=== PATIENT | male | born 1955 | race African-American/Black ===

== ENCOUNTER 2020-12-05 15:37 | Emergency (ER) | payer MEDICAID ==
[~2020-12-05] VITALS: Ht 177.8 cm; Wt 129.6 kg
[2020-12-05] MEDS ORDERED: UNK HTN MED PO (15:49)
[2020-12-05] MEDS ORDERED: ALBU8HFA IH (15:49)
[2020-12-05 16:28] LABS: EOSINOPHILS % (AUTO) 2.2 % (1.0-6.0); HEMATOCRIT 45.2 % (41-53); HEMOGLOBIN 14.2 g/dL (13.5-17.5); LYMPHOCYTES % (AUTO) 24.8 % (22.0-44.0); MEAN CORPUSCULAR HEMOGLOBIN 27.4 pg (26.0-34.0); MEAN CORPUSCULAR HGB CONC 31.4 G/dL (31.0-37.0); MEAN CORPUSCULAR VOLUME 87 fL (80-100); MONOCYTES % (AUTO) 8.8 % (2.0-9.0); NEUTROPHILS % (AUTO) 63.1 % (40.0-70.0); PLATELET COUNT (AUTO) 262 K/uL (150-450); RED BLOOD CELL COUNT(AUTO) 5.19 MIL/uL (4.50-5.90); RED CELL DISTRIBUTION WIDTH 19.5 % (11.5-14.5)
[2020-12-05 16:29] LABS: BASOPHILS % (AUTO) 1.1 % (0.0-2.0); LYMPHOCYTES # (AUTO) 1.8 K/uL (1.0-4.8); MONOCYTES # (AUTO) 0.6 K/uL (0.1-1.0); NEUTROPHILS # (AUTO) 4.6 K/uL (1.8-7.7)
[2020-12-05 16:41] LABS: ANION GAP 6 mmol/L (8-16); CALCIUM, TOTAL 9.1 mg/dL (8.8-10.5); CARBON DIOXIDE 33 mmol/L (22-29); CHLORIDE 107 mmol/L (98-107); CREATININE 1.17 mg/dL (0.60-1.30); GLOMERULAR FILTR. RATE CALC > 60 mL/min (>60); GLUCOSE,RANDOM 231 mg/dL (70-110); POTASSIUM 4.2 mmol/L (3.5-5.1); SODIUM SERUM 146 mmol/L (136-145); UREA NITROGEN, BLOOD 15 mg/dL (7-18)
[2020-12-05] MEDS ORDERED: MethylPREDNISolone SOD SUCC 125 MG/2 ML VIAL IVP ONE (16:45)
[2020-12-05 16:50] LABS: COVID AG,FIA SOURCE NASOPHARYNGEAL
[2020-12-05 16:59] LABS: B-TYPE NATRIURETIC PEPTIDE 346 pg/mL (0-100)
[2020-12-05 17:05] VITALS: BP 155/78
[2020-12-05 17:06] LABS: ALANINE AMINOTRANSFERASE 24 U/L (12-78); ALBUMIN 3.6 g/dL (3.4-5.0); ALKALINE PHOSPHATASE 68 U/L (46-116); ASPARTATE AMINOTRANSFERASE 9 U/L (15-37); BILIRUBIN,TOTAL 0.3 mg/dL (0.1-1.0); CREATINE KINASE, TOTAL ONLY 108 U/L (39-308); TOTAL PROTEIN, SERUM 7.1 g/dL (6.4-8.2)
[2020-12-05 17:16] LABS: ABG A-A DIFF O2 59.7 mmHg (10-20.0); ABG BASE EXCESS 6.4 mmol/L (-2.0-3.0); ABG CARBOXYHEMOGLOBIN 4.7 % (0.0-1.5); ABG HCO3 27.9 mmol/L (22.0-26.0); ABG METHEMOGLOBIN 0.2 % (0.0-1.5); ABG OXYGEN CONTENT 18.5 mL/dL (15.0-23.0); ABG OXYGEN SATURATION 91.3 % (95.0-98.0); ABG OXYHEMOGLOBIN 86.8 % (94.0-100.0); ABG PH 7.303 (7.35-7.450); ABG TOTAL HEMOGLOBIN 15.2 G/dL (12.0-18.0); PO2, ARTERIAL BG 60.3 mmHg (79.0-87.0); SOURCE, BLOOD GAS ARTERIAL; TEMPERATURE, FAHRENHEIT, BG 98.1 FAHREN (96.0-98.6)
[2020-12-05 17:17] LABS: ABG PCO2 68 mmHg (35-45); SITE, BLOOD GAS RT BRACHIAL
[2020-12-05 17:18] LABS: O2 DEVICE,BLOOD GAS CANNULA (ROOM AIR)
[2020-12-05] MEDS ORDERED: ALBUTEROL SULFATE HFA 90 MCG/PUFF 8 GM INHALER IH ONE (17:45)
== END 2020-12-05 18:05 | disposition left against medical advice (07) ==
LOC: EMS 15:37
DX: J44.9 Chronic obstructive pulmonary disease, unspecified (principal); I11.0 Hypertensive heart disease with heart failure; I50.9 Heart failure, unspecified; F17.210 Nicotine dependence, cigarettes, uncomplicated; Z20.822 Contact with and (suspected) exposure to COVID-19
CPT/HCPCS: 36415; 36600; 71045; 80053; 82550; 82805; 83880; 84484; 85025; 87426; 93005; 94640; 96374; 99291; J2930; 99285; J3535